=== PATIENT | female | born 1960 ===

== ENCOUNTER 2018-04-25 05:33 | Emergency (ER) | payer OTHER ==
[~2018-04-25] VITALS: Ht 157.5 cm; Wt 74.4 kg
[2018-04-25] MEDS ORDERED: VITAMIN D3400 UNIT (06:01)
== END 2018-04-25 10:28 | disposition home or self-care (01) ==
LOC: ER 05:33
DX: I16.0 Hypertensive urgency (principal); I10 Essential (primary) hypertension; R04.0 Epistaxis